=== PATIENT | male | born 1940 | race Caucasian/White ===

== ENCOUNTER → 2021-07-16 | Outpatient (CLI) | payer MEDICARE, OTHER | END | disposition home or self-care (01) | LOC: LAB SHORT 11:04 | DX: H61.002 Unspecified perichondritis of left external ear (principal) | CPT/HCPCS: 88305 ==

== ENCOUNTER 2024-12-20 15:24 | Inpatient (IN) | payer MEDICARE, OTHER ==
[~2024-12-20] VITALS: Ht 175.3 cm; Wt 61.1 kg
[2024-12-20 16:17] LABS: Albumin, Blood 3.3 g/dL (3.4-5.0); Albumin/Globulin Ratio 0.8 (0.8-1.8); Bilirubin, Total 2.8 mg/dL (0.1-1.0); Bun/Creatinine Ratio 22.3 (12.0-20.0); Calcium, Blood 9.4 mg/dL (8.5-10.1); Creatinine, Blood 1.88 mg/dL (0.60-1.20); Globulin, Blood 3.9 g/dL (2.2-4.0); Potassium, Blood 4.4 mmol/L (3.5-5.5); Total Protein, Blood 7.2 g/dL (6.4-8.2)
[2024-12-20 16:31] LABS: BASOPHILS ABSOLUTE AUTO 0.05 K/mm3 (0.00-0.23); BASOPHILS PERCENT AUTO 1 % (0-2); EOSINOPHILS ABSOLUTE AUTO 0.04 K/mm3 (0.00-0.68); EOSINOPHILS PERCENT AUTO 1 % (0-6); Hematocrit 51.1 % (37.0-53.0); Hemoglobin 17.3 g/dL (13.5-17.5); IMMATURE GRAN ABSOLUTE AUTO 0.06 K/mm3 (0.00-0.10); IMMATURE GRAN PERCENT AUTO 1 % (0-1); LYMPHOCYTES ABSOLUTE AUTO 1.07 K/mm3 (0.84-5.20); LYMPHOCYTES PERCENT AUTO 15 % (21-46); MONOCYTES ABSOLUTE AUTO 0.72 K/mm3 (0.16-1.47); MONOCYTES PERCENT AUTO 10 % (4-13); Mean Corpuscular HGB 31.5 pg (26.0-34.0); Mean Corpuscular HGB Conc 33.9 g/dL (31.5-36.5); Mean Corpuscular Volume 93 fL (80-100); NEUTROPHILS ABSOLUTE AUTO 5.43 K/mm3 (1.96-9.15); NEUTROPHILS PERCENT AUTO 74 % (41-73); RDW Coefficient Variation 19.2 % (11.7-14.2); RDW Standard Deviation 62.7 fL (35.1-46.3); Red Blood Cell Count 5.49 M/mm3 (4.30-5.90); White Blood Cell Count 7.37 K/mm3 (4.00-11.30)
[2024-12-20] MEDS ORDERED: Furosemide 10 MG/ML 4ML Vial IV ONE (19:30)
[2024-12-20] MEDS ORDERED: Ondansetron HCl 2 MG / ML 2ML Vial IV PRN (20:05)
[2024-12-20] MEDS ORDERED: ENTRESTO 49 MG1 EACH (20:18)
[2024-12-20] MEDS ORDERED: ENTRESTO 49 MG1 EACH PO (20:19)
[2024-12-20] MEDS ORDERED: METO50ER PO (20:19)
[2024-12-20] MEDS ORDERED: ROSUVASTATIN CA20 MG PO (20:20)
[2024-12-20] MEDS ORDERED: FURO80 PO (20:20)
[2024-12-20] MEDS ORDERED: FINA5 PO (20:20)
[2024-12-20] MEDS ORDERED: GLIM2 PO (20:20)
[2024-12-20] MEDS ORDERED: PANT40 PO (20:53)
[2024-12-20 21:46] VITALS: BP 113/81
[2024-12-21 00:35] VITALS: BP 119/90
--- NOTE | 2024-12-21 03:47 | NUR ---
SHIFT SUMMARY PATIENT HAS HAD A SLEPT INTERMITTANTLY SINCE BEING ADMITTED TO THE MEDICAL FLOOR. HE IS WEARING 2 LITERS OF SUPPLEMENTAL 02 TO KEEP HIS SATURATIONS ABOVE 90 PERCENT. CONTINUOUS PULSE OX IS IN PLACE. PATIENT DENIES PAIN. HE IS ORIENTED X4 AND HAS HIS CALL LIGHT WITHIN REACH. SAFETY PRECAUTIONS ARE BEIING MAINTAINED.
[2024-12-21 04:25] VITALS: BP 121/92
[2024-12-21 05:05] LABS: BASOPHILS ABSOLUTE AUTO 0.06 K/mm3 (0.00-0.23); BASOPHILS PERCENT AUTO 1 % (0-2); EOSINOPHILS ABSOLUTE AUTO 0.16 K/mm3 (0.00-0.68); EOSINOPHILS PERCENT AUTO 2 % (0-6); Hematocrit 46.9 % (37.0-53.0); Hemoglobin 15.8 g/dL (13.5-17.5); IMMATURE GRAN ABSOLUTE AUTO 0.02 K/mm3 (0.00-0.10); IMMATURE GRAN PERCENT AUTO 0 % (0-1); LYMPHOCYTES ABSOLUTE AUTO 1.17 K/mm3 (0.84-5.20); LYMPHOCYTES PERCENT AUTO 18 % (21-46); MONOCYTES ABSOLUTE AUTO 0.74 K/mm3 (0.16-1.47); MONOCYTES PERCENT AUTO 11 % (4-13); Mean Corpuscular HGB 31.7 pg (26.0-34.0); Mean Corpuscular HGB Conc 33.7 g/dL (31.5-36.5); Mean Corpuscular Volume 94 fL (80-100); Mean Platelet Volume 12.1 fL (9.1-12.4); NEUTROPHILS ABSOLUTE AUTO 4.41 K/mm3 (1.96-9.15); NEUTROPHILS PERCENT AUTO 67 % (41-73); Platelet Count 108 K/mm3 (150-400); RDW Standard Deviation 63.7 fL (35.1-46.3); Red Blood Cell Count 4.98 M/mm3 (4.30-5.90); White Blood Cell Count 6.56 K/mm3 (4.00-11.30)
[2024-12-21 05:23] LABS: Albumin, Blood 2.8 g/dL (3.4-5.0); Albumin/Globulin Ratio 0.8 (0.8-1.8); Bilirubin, Total 2.1 mg/dL (0.1-1.0); Calcium, Blood 8.7 mg/dL (8.5-10.1); Creatinine, Blood 1.63 mg/dL (0.60-1.20); Globulin, Blood 3.5 g/dL (2.2-4.0); Potassium, Blood 3.9 mmol/L (3.5-5.5); Total Protein, Blood 6.3 g/dL (6.4-8.2)
[2024-12-21] MEDS ORDERED: Pantoprazole Sodium 40 MG Tab PO SCH (06:00)
[2024-12-21] MEDS ORDERED: Insulin Human Lispro 100 Units/ML 3ML Syringe SC SCH (07:30)
[2024-12-21 07:44] VITALS: BP 129/107
[2024-12-21] MEDS ORDERED: Potassium Chloride 20 MEQ TabCR PO SCH (08:00)
[2024-12-21] MEDS ORDERED: Empagliflozin 10 MG TAB PO SCH (09:00)
[2024-12-21] MEDS ORDERED: Furosemide 10 MG/ML 4ML Vial IV SCH (09:00)
[2024-12-21] MEDS ORDERED: Rosuvastatin Calcium 10 MG Tab PO SCH (09:00)
[2024-12-21] MEDS ORDERED: Enoxaparin 40 MG/0.4 ML SYR SC SCH (09:00)
[2024-12-21] MEDS ORDERED: Tamsulosin HCl 0.4 MG Cap PO SCH (11:00)
[2024-12-21 16:08] VITALS: BP 115/87
--- NOTE | 2024-12-21 16:43 | NUR ---
SHIFT SUMMARY PT AOX3/4, COOPERATIVE, ABLE TO MAKE NEEDS KNOWN. PT IS 1P ASSIST TO BATHROOM TO VOID. ON FLUID RESTR, 1800 FOR 24 HOURS. RUNNING TELE, USING 2L O2 PRN. PLAN IS DIURESING CURRENTLY. BED IN LOWEST POSITION, CALL LIGHT WITHIN REACH.
[2024-12-21] MEDS ORDERED: Glimepiride 4 MG Tab PO SCH (17:00)
[2024-12-21 20:12] VITALS: BP 114/86
[2024-12-21 23:54] VITALS: BP 114/82
[2024-12-22 04:53] VITALS: BP 111/82
[2024-12-22 05:01] LABS: Bun/Creatinine Ratio 25.9 (12.0-20.0); Calcium, Blood 8.3 mg/dL (8.5-10.1); Creatinine, Blood 1.47 mg/dL (0.60-1.20); Potassium, Blood 3.4 mmol/L (3.5-5.5)
--- NOTE | 2024-12-22 05:56 | NUR ---
SHIFT SUMMARY PT HAS BEEN RESTING IN BED COMFORTABLY OVERNIGHT. HE HAS BEEN AOX3, CALM AND COOPERATIVE, HOWEVER HE HAS BEEN GETTING OOB W/O CALLING THROUGHOUT NIGHT. BED LOCKED IN LOWEST POSITION AND ALARM ARMED THROUGHOUT NIGHT. PT HAS BEEN STEADY ON FEET, W/ NO C/O DIZZINESS. HE HAS BEEN ON TELEMETRY, NO EVENTS OVERNIGHT. PT HAS HAD NO COMPLAINTS OVERNIGHT.
[2024-12-22 07:24] VITALS: BP 97/65
[2024-12-22] MEDS ORDERED: Dextrose 50% 50 ML Vial IV STA (07:50)
[2024-12-22] MEDS ORDERED: Dextrose 50% 50 ML Vial IV PRN (08:00)
[2024-12-22 08:44] LABS: Anti-Xa UFH, PHA Monitoring <0.10 IU/mL; International Normalized Ratio 1.78; Prothrombin Time Results 18.8 Sec (9.7-11.5)
[2024-12-22] MEDS ORDERED: Metoprolol Succinate 25 MG TABCR PO SCH (09:00)
[2024-12-22] MEDS ORDERED: Dose Adjust by Pharmacy XX STA ×2 (09:02→16:39)
[2024-12-22] MEDS ORDERED: Heparin Sodium,Porcine/0.5 NS 500 ML IV SCH (09:05)
[2024-12-22 15:29] VITALS: BP 114/94
[2024-12-22] MEDS ORDERED: Spironolactone 12.5 MG TAB PO SCH (17:12)
--- NOTE | 2024-12-22 17:57 | NUR ---
NO ACUTE CHANGES, PATIENT TO BE NPO AT MIDING FOR HEART CATH TOMORROW, HEPATIN GTT RUNING, COUMADIN HELD PER CARDILOGIST, JENNY AGREED WITH FAMILY AND RN TO BE MORE COMPLIANT WITH CARE AND MEDICATIONS, PATIENT HAS USED CALL LIGHT SINCE, CALL LIGHT WITH IN REACH, BED ALARM ON, WILL RELAY TO PM RN
[2024-12-22] MEDS ORDERED: Warfarin Sodium 2.5 MG Tab PO ONE (18:00)
[2024-12-22 19:15] VITALS: BP 119/82
--- NOTE | 2024-12-22 21:56 | NUR ---
BRUSH MACHINE SETTER CALLED TO REPORT PT HAD A 5 BEAT RUN OF VTACH. PT ASLEEP, RESTING QUIETLY. HEART RATE 90 AND 02 SATS 99% PER CONT BIOX. CALL LT IN REACH.
[2024-12-22 23:54] VITALS: BP 103/75
[2024-12-23] MEDS ORDERED: Clarify Drug Order XX ONE ×2 (00:40→05:50)
[2024-12-23 03:36] VITALS: BP 100/74
--- NOTE | 2024-12-23 03:51 | NUR ---
SHIFT SUMMARY A/OX3 THROUGHOUT THE SHIFT. VITAL SIGNS REMAINED STABLE. RESTED WELL THROUGHOUT THE NIGHT. TELE SINUS RHYTHM 88 WITH BBB AND PVCS, NO REPORT OF CHEST PAIN OR PRESSURE. VOIDING WELL. NPO SINCE MIDNIGHT. HEPARIN RUNNING THROUGHTOUT THE NIGHT AT 13U/KG/HR. NO ACUTE CHANGES. CALL LIGHT IN REACH, BED IN LOWEST POSITION.
[2024-12-23 05:18] LABS: International Normalized Ratio 1.52; Prothrombin Time Results 16.2 Sec (9.7-11.5)
[2024-12-23 05:24] LABS: BASOPHILS ABSOLUTE AUTO 0.03 K/mm3 (0.00-0.23); BASOPHILS PERCENT AUTO 1 % (0-2); EOSINOPHILS PERCENT AUTO 8 % (0-6); IMMATURE GRAN ABSOLUTE AUTO 0.02 K/mm3 (0.00-0.10); IMMATURE GRAN PERCENT AUTO 0 % (0-1); LYMPHOCYTES ABSOLUTE AUTO 0.65 K/mm3 (0.84-5.20); LYMPHOCYTES PERCENT AUTO 10 % (21-46); MONOCYTES ABSOLUTE AUTO 0.52 K/mm3 (0.16-1.47); MONOCYTES PERCENT AUTO 8 % (4-13); Mean Corpuscular HGB 31.3 pg (26.0-34.0); Mean Corpuscular HGB Conc 34.1 g/dL (31.5-36.5); Mean Corpuscular Volume 92 fL (80-100); NEUTROPHILS ABSOLUTE AUTO 4.53 K/mm3 (1.96-9.15); NEUTROPHILS PERCENT AUTO 73 % (41-73); RDW Coefficient Variation 18.4 % (11.7-14.2); RDW Standard Deviation 61.5 fL (35.1-46.3); Red Blood Cell Count 4.48 M/mm3 (4.30-5.90); White Blood Cell Count 6.25 K/mm3 (4.00-11.30)
[2024-12-23 07:17] VITALS: BP 108/84
[2024-12-23 07:44] LABS: Bun/Creatinine Ratio 20.1 (12.0-20.0); Calcium, Blood 8.4 mg/dL (8.5-10.1); Creatinine, Blood 1.39 mg/dL (0.60-1.20); Potassium, Blood 3.6 mmol/L (3.5-5.5)
[2024-12-23 11:19] VITALS: BP 118/81
[2024-12-23] MEDS ORDERED: Dose Adjust by Pharmacy XX STA (11:25)
[2024-12-23] MEDS ORDERED: NS 0 ML IV ONE (12:37)
[2024-12-23] MEDS ORDERED: NS 500 ML IV ONE (12:42)
[2024-12-23] MEDS ORDERED: Heparin Sodium 1000 Units/ML 10ML MDV ONE ×2 (12:42→13:24)
[2024-12-23] MEDS ORDERED: NS 250 ML IV ONE (13:24)
--- NOTE | 2024-12-23 14:46 | NUR ---
PATIENT BACK FROM PROCEDURE AND IS IN GOOD SPIRIT. COMPLAINS OF MINIMAL PN AND DISCOMFORT. PATIENT ON 1L 02 A+0 X3-4. WILL CONTINUE TO MONITOR PATIENT AT THIS TIME.
[2024-12-23 16:07] VITALS: BP 123/82
[2024-12-23] MEDS ORDERED: Warfarin Sodium 4 MG Tab PO SCH (18:00)
--- NOTE | 2024-12-23 18:07 | NUR ---
SHIFT SUMMARY: PATIENT A+OX3 THROUGHOUT THIS DAY. PATIENT HAD RHC DONE IN RUBBER WORKER EARLIER THIS DAY. PATIENT PLEASANT AND COOPERATIVE c CARE. HEPARIN RUNNING AT THIS TIME. PLAN OF CARE ONGOING. WILL GIVE REPORT TO ONCOMING RN.
[2024-12-23 20:16] VITALS: BP 115/86
[2024-12-23 23:55] VITALS: BP 104/83
[2024-12-24] MEDS ORDERED: Dose Adjust by Pharmacy XX STA ×2 (00:30→07:48)
[2024-12-24 02:59] VITALS: BP 116/89
--- NOTE | 2024-12-24 06:24 | NUR ---
SHIFT SUMMARY KNOWN TACHYCARDIC DUE TO AF WITH OCCASIONAL PVC, OR NSR AND ERRATIC DISORGANIZED RHYTHM. HAD 1 EPISODE OF 12-SPIKED SVT . CALM AND COGNIZANT BUT OFTENLY FORGETS TO PRESS CALL CAGLE FOR HELP AND JUST SITS ON SIDE OF BED WAITING FOR HELP ON THE URINAL. SPILLED URINE ONCE WHILE USING THE URINAL. PUT BED ALARM ON. ON HEPARIN DRIP CONTINOUSLY AND INCREASED BY PHARMACIST AT [facility]. MAINTAINED FLUID RESTRICTION. AWAKE AND EASILY AROUSABLE MOST OF THE NIGHT BUT PT SAID HE HAD A COMFORTABLE SLEEP.
[2024-12-24 07:35] LABS: Hematocrit 43.4 % (37.0-53.0); Hemoglobin 14.7 g/dL (13.5-17.5); Mean Corpuscular HGB 31.3 pg (26.0-34.0); Mean Corpuscular HGB Conc 33.9 g/dL (31.5-36.5); Mean Corpuscular Volume 92 fL (80-100); RDW Coefficient Variation 18.1 % (11.7-14.2); White Blood Cell Count 6.24 K/mm3 (4.00-11.30)
[2024-12-24 07:38] LABS: International Normalized Ratio 1.4
[2024-12-24 07:44] LABS: Bun/Creatinine Ratio 17.1 (12.0-20.0); Calcium, Blood 8.4 mg/dL (8.5-10.1); Creatinine, Blood 1.29 mg/dL (0.60-1.20); Potassium, Blood 3.6 mmol/L (3.5-5.5)
[2024-12-24 07:49] VITALS: BP 121/90
[2024-12-24 07:50] LABS: Platelet Count 91 K/mm3 (150-400)
[2024-12-24 11:43] VITALS: BP 107/82
--- NOTE | 2024-12-24 12:45 | NUR ---
PATIENTS RIGHT ACESS SITE FROM [facility] 12/23 APPEARS TO STILL BE BLEEDING. DRESSING/TEGADERM REMOVED THIS AM, WAS NOT ACTIVELY BLEEDING OR OOZING, SO GUAZE AND TEGADERM REPLACED. ABOUT 2 HOURS LATER MY TRANSPORTATION ECONOMICS TEACHER TELLS ME SITE IS BLOODY AGAIN, MY CHARGE NURSE TRINITY SAT AND HELD PRESSURE FOR ABOUT 10 MINUTES AND SITE WAS STILL BLEEDING, PCU CHARGE RECOMMENDED SHASHI DRESSING AND TO WRAP TIGHTLY IN [place]. NOTIFIED DR. LEYVA.
[2024-12-24 16:00] VITALS: BP 106/80
[2024-12-24] MEDS ORDERED: Warfarin Sodium 7.5 MG Tab PO SCH (18:00)
[2024-12-24 21:09] VITALS: BP 104/82
[2024-12-24] MEDS ORDERED: Clarify Drug Order XX ONE (21:40)
[2024-12-25] VITALS (7 sets, daily range): BP systolic 107–123; BP diastolic 62–94
[2024-12-25 05:16] LABS: Anti-Xa UFH, PHA Monitoring 0.35 IU/mL; International Normalized Ratio 2.02; Prothrombin Time Results 21.1 Sec (9.7-11.5)
[2024-12-25 05:22] LABS: Hematocrit 42.1 % (37.0-53.0); Mean Corpuscular HGB 30.7 pg (26.0-34.0); Mean Corpuscular HGB Conc 33.3 g/dL (31.5-36.5); Mean Corpuscular Volume 92 fL (80-100); RDW Coefficient Variation 17.9 % (11.7-14.2); Red Blood Cell Count 4.56 M/mm3 (4.30-5.90); White Blood Cell Count 5.94 K/mm3 (4.00-11.30)
[2024-12-25 05:25] LABS: Platelet Count 57 K/mm3 (150-400)
[2024-12-25 05:31] LABS: Albumin, Blood 2.8 g/dL (3.4-5.0); Anion Gap 9 mmol/L (3-11); Blood Urea Nitrogen 22 mg/dL (8-24); Bun/Creatinine Ratio 17.2 (12.0-20.0); CO2, Blood 27 mmol/L (21-32); Calcium, Blood 8.4 mg/dL (8.5-10.1); Chloride, Blood 103 mmol/L (98-108); Creatinine, Blood 1.28 mg/dL (0.60-1.20); Glomerular Filtration Rate 56 (60-); Glucose, Blood 156 mg/dL (70-99); Magnesium, Blood 2.2 mg/dL (1.6-2.4); Phosphorus, Blood 2.3 mg/dL (2.5-4.9); Potassium, Blood 3.9 mmol/L (3.5-5.5); Sodium, Blood 135 mmol/L (136-145)
--- NOTE | 2024-12-25 06:19 | NUR ---
SHIFT SUMMARY SAME LEVEL OF ORIENTATION. VSS. ON TELE - NO CHANGES ON ERRATIC RHYTHM AND HAS BEEN ALWAYS ASYMPTOMATIC AND DENYING ANY S/SX WHEN ASKED. HAD BOWEL MOVEMENT THAT IS DRY AND POWDERY/ GRAINY IN CONSISTENCY BUT WAS NOT ABLE RECOGNIZE HE HAD IT FOR A LONG WHILE. GETS EASILY AWAKEN BY MILD STIMULUS AND OFTEN SITS AT SIDE OF BED REQUESTING FOR A URINAL FREQUENTLY HE HAS GOOD CONTINENCE & UO EVERYTIME. PHARMACIST COMMUNICATED FOR LOW PLATELET COORDINATED W/ DOCTOR AND TURNED OF HEPARIN FOR NOW.
[2024-12-25] MEDS ORDERED: Sodium Phosphate Mono/Dibasic 250 MG Tab PO SCH (08:00)
--- NOTE | 2024-12-25 15:05 | NUR ---
SUMMARY DR. VALE WITH CARDIO ROUNDED TODAY AND ORDERED ROUTINE EKG, CALLED DR. VALE WHEN COMPLETED. SOME CHANGES TO MED REGIMEN WERE MADE PER DR. VALE. WILL ROUND AGAIN TOMORROW AND POTENTIALLY DISCHARGE PATIENT IF EVERYTHING LOOKS OK. PT UP IN SHOWER TODAY AND USING URINAL AT BEDSIDE WITH ASSISTANCE TO MONITOR I&O'S. PATIENT DENIES PAIN. A/OX4. PLEASANT AND COOPERATIVE. PATIENTS SIGNIFICANT OTHER AT BEDSIDE.
[2024-12-25] MEDS ORDERED: Warfarin Sodium 4 MG Tab PO SCH (18:00)
[2024-12-25] MEDS ORDERED: Furosemide 10 MG/ML 4ML Vial IV ONE (18:00)
--- NOTE | 2024-12-25 18:52 | NUR ---
TELE CALLED THIS EVENING TO LET ME KNOW PATIENT WAS HAVING MULTIFOCAL ATRIAL TACHYCARDIA IN THE 120'S-130'S. WENT TO ASSESS PATIENT AND HE WAS STANDING AT EOB USING URINAL. PT WAS NOT SYMPTOMATIC. DR. THOMAS NOTIFIED AT 1853.
--- NOTE | 2024-12-26 03:25 | NUR ---
SUMMARY: PT A/OX4 BUT MILDLY FORGETFULL AT TIMES W/BED ALARM ON FOR FALL RISK. HE'S UP W/SBA AND USES URINAL AT EOB W/ASSIST D/T URGENCY. BLE EDEMA PERSISTS AND 1800ML FR MAINTAINED. SPO2 WNL ON RA W/CONT BIOX INTACT. OVERNIGHT SLEEP STUDY IN PROGRESS T/O NOCTE. HE REMIANS ON TELE W/WAP AT 90'S-100'S BPM. PT HAD SHORT DURATION ST ELEVATION BUT WAS ASLEEP AND ASYMPTOMATIC AT THE TIME. WELDER EXPLOSION STATED PT INTERMITTENTLY HAS HAD ST ELEVATION PREVIOUSLY WELL. NOTIFIED W/NO NEW ORDERS RECEIVED. NO ACUTE CHANGES, VSS/AFEBRILE. WILL REPORT TO DAY RN.
[2024-12-26 03:33] VITALS: BP 106/74
[2024-12-26 06:18] LABS: Hematocrit 43.9 % (37.0-53.0); Hemoglobin 14.6 g/dL (13.5-17.5); Mean Corpuscular HGB 31.1 pg (26.0-34.0); Mean Corpuscular HGB Conc 33.3 g/dL (31.5-36.5); Mean Corpuscular Volume 94 fL (80-100); Mean Platelet Volume 12.3 fL (9.1-12.4); Platelet Count 123 K/mm3 (150-400); RDW Standard Deviation 61.9 fL (35.1-46.3); Red Blood Cell Count 4.69 M/mm3 (4.30-5.90); White Blood Cell Count 6.12 K/mm3 (4.00-11.30)
--- NOTE | 2024-12-26 06:19 | NUR ---
TOP IRONER CALLED TO ALERT RN THAT ST ELEVATION WAS WORSENING. PT ASYMPTOMATIC OF DISTRESS AND VSS. MADE AWARE AND NEW ORDER RECEIVED FOR EKG. PLAN TO ALERT MD PRN PENDING ANY ABNORMAL OR CRITICAL RESULTS.
[2024-12-26 06:38] LABS: Prothrombin Time Results 46.7 Sec (9.7-11.5)
[2024-12-26 06:43] LABS: Albumin, Blood 2.9 g/dL (3.4-5.0); Anion Gap 8 mmol/L (3-11); Blood Urea Nitrogen 24 mg/dL (8-24); Bun/Creatinine Ratio 19.2 (12.0-20.0); CO2, Blood 28 mmol/L (21-32); Calcium, Blood 8.6 mg/dL (8.5-10.1); Chloride, Blood 103 mmol/L (98-108); Creatinine, Blood 1.25 mg/dL (0.60-1.20); Glomerular Filtration Rate 57 (60-); Glucose, Blood 150 mg/dL (70-99); Magnesium, Blood 2.3 mg/dL (1.6-2.4); Sodium, Blood 135 mmol/L (136-145)
[2024-12-26 06:50] LABS: International Normalized Ratio 4.77
[2024-12-26 07:39] VITALS: BP 100/74
[2024-12-26] MEDS ORDERED: Metoprolol Succinate 25 MG TABCR PO SCH (09:00)
[2024-12-26] MEDS ORDERED: Losartan Potassium 25 MG Tab PO SCH (09:00)
[2024-12-26] MEDS ORDERED: Metoprolol Succinate 50 MG TABCR PO SCH (09:00)
[2024-12-26] MEDS ORDERED: Bumetanide 1 MG Tab PO SCH (09:00)
[2024-12-26 11:26] LABS: HEP-IND THROMBOCYTOPEN PF4,IGG 0.043 OD (<=0.399)
[2024-12-26 11:46] VITALS: BP 103/73
[2024-12-26] MEDS ORDERED: Bumetanide2 MG PO (12:30)
[2024-12-26] MEDS ORDERED: JARDIANCE10 MG PO (12:31)
[2024-12-26] MEDS ORDERED: CORLANOR5 MG PO (12:32)
[2024-12-26] MEDS ORDERED: LOSA25 PO (12:32)
[2024-12-26] MEDS ORDERED: TAMS.4ER PO (12:33)
[2024-12-26] MEDS ORDERED: SPIR25 PO (12:33)
[2024-12-26] MEDS ORDERED: POTCHL20ER PO (12:33)
[2024-12-26] MEDS ORDERED: WARF2.5 PO (12:34)
--- NOTE | 2024-12-26 16:18 | NUR ---
DISCHARGE NOTE PT EDUCATED ON DISCHARGE PAPERWORK AND NEW PRESCRIPTIONS. PT EDUCATED ON INSULIN ADMINISTRATION AND HAD PT DEMONSTRATE TO ME AT LUNCH TIME ADMINISTRATION. ALSO EDUCATED DAUGHTER AT BEDSIDE ON 12/25. HARD SCRIPT FOR OXY SENT WITH PATIENT WELL SCRIPT FOR GLUCOMETER. PT MEDICATED WITH XANAX PRN PER EMAR. ESCORTED DOWN VIA WHEELCHAIR. PATIENTS MOTHER IS RIDE HOME. DIETITIAN DROPPED OFF EDUCATION FOR CARB CONTROLLED DIET AND SENT WITH PATIENT. ALL BELONGINGS GATHERED AND IV REMOVED. NO NEW QUESTIONS OR CONCERNS PRIOR TO DC.
--- NOTE | 2024-12-26 16:22 | NUR ---
DISCHARGE NOTE PT AND FAMILY AT BEDSIDE EDUCATED ON DISCHARGE MEDS AND INSTRUCITONS. HAS A FOLLOW UP CARDIOLOGY APPT. ARRANGED FOR JANUARY 13 AT [facility]. WALKER DELIVERED AND SENT WITH PATIENT. YOVANI TO DELIVER HOME O2 AT PT HOUSE. TO WEAR OVERNIGHT. PT EDUCATED ON FLUID RESTRICTION AND SODIUM CONTROLLED/CARB CONTROLLED DIET. IV REMOVED. PT DRESSED/BELONGINGS GATHERED AND SENT WITH PATIENT. ESCORTED DOWN VIA WHEELCHAIR. SIGNIFICANT OTHER IS RIDE HOME. NO NEW QUESTIONS OR CONCERNS FROM PATIENT OR FAMILY PRIOR TO DC.
== END 2024-12-26 16:01 | disposition home health service (06) | DRG 286 ==
LOC: ER 15:24 → MEDS 20:00
PROVIDERS: Emergency Medicine; Internal Medicine; ADMIT Student in an Organized Health Care Education/Training Program
PROC: B2111ZZ Fluoroscopy of Multiple Coronary Arteries using Low Osmolar Contrast (ICD-10-PCS; principal; 2024-12-23)
PROC: 02HQ32Z Insertion of Monitoring Device into Right Pulmonary Artery, Percutaneous Approach (ICD-10-PCS; 2024-12-23)
DX: I13.0 Hypertensive heart and chronic kidney disease with heart failure and stage 1 through stage 4 chronic kidney disease, or unspecified chronic kidney disease (principal); I50.23 Acute on chronic systolic (congestive) heart failure; J96.01 Acute respiratory failure with hypoxia; N17.9 Acute kidney failure, unspecified; I47.19 Other supraventricular tachycardia; E87.70 Fluid overload, unspecified; I25.10 Atherosclerotic heart disease of native coronary artery without angina pectoris; I36.1 Nonrheumatic tricuspid (valve) insufficiency; I42.0 Dilated cardiomyopathy; Z66 Do not resuscitate; I25.5 Ischemic cardiomyopathy; N18.30 Chronic kidney disease, stage 3 unspecified; E78.5 Hyperlipidemia, unspecified; E11.22 Type 2 diabetes mellitus with diabetic chronic kidney disease; D69.6 Thrombocytopenia, unspecified; I27.21 Secondary pulmonary arterial hypertension; R54 Age-related physical debility; I44.7 Left bundle-branch block, unspecified; Z98.890 Other specified postprocedural states; Z95.5 Presence of coronary angioplasty implant and graft; Z79.84 Long term (current) use of oral hypoglycemic drugs; Z79.899 Other long term (current) drug therapy; Z91.198 Patient's noncompliance with other medical treatment and regimen for other reason; Z88.8 Allergy status to other drugs, medicaments and biological substances
CPT/HCPCS: 36415; 71046; 80048; 80053; 80069; 82947; 83735; 83880; 84484; 85025; 85027; 85520; 85610; 85730; 86022; 93005; 93010; 93451; 94664; 94762; 96374; 97116; 97162; 97530; 99285-25; A9270; C1769; C1894; C8929; J1644; J1650; J1938; J7030; J7040; J7050; J7799; Q9957

== ENCOUNTER → 2025-01-24 | Outpatient (CLI) | payer MEDICARE, OTHER ==
[~2025-01-24] MED LIST: Bumetanide2 MG PO; CORLANOR5 MG PO; ENTRESTO 49 MG1 EACH; ENTRESTO 49 MG1 EACH PO; FINA5 PO; FURO80 PO; GLIM2 PO; JARDIANCE10 MG PO; LOSA25 PO; METO50ER PO; PANT40 PO; POTCHL20ER PO; ROSUVASTATIN CA20 MG PO; SPIR25 PO; TAMS.4ER PO; WARF2.5 PO
[2025-01-24 21:15] LABS: Anion Gap 11.0 mmol/L (3-11); Blood Urea Nitrogen 25.0 mg/dL (8-24); CO2, Blood 25.0 mmol/L (21-32); Calcium, Blood 9.3 mg/dL (8.5-10.1); Chloride, Blood 101.0 mmol/L (98-108); Creatinine, Blood 1.09 mg/dL (0.60-1.20); Glucose, Blood 162.0 mg/dL (70-99); Potassium, Blood 4.3 mmol/L (3.5-5.5); Sodium, Blood 133.0 mmol/L (136-145)
== END ==
LOC: LAB SHORT 19:20 → LAB 19:20
PROVIDERS: Internal Medicine Interventional Cardiology
DX: I50.22 Chronic systolic (congestive) heart failure (principal); Z79.01 Long term (current) use of anticoagulants; E11.22 Type 2 diabetes mellitus with diabetic chronic kidney disease
CPT/HCPCS: 80048; 83036; 83880